=== PATIENT | female | born 1940 | race Caucasian/White ===

== ENCOUNTER 2017-10-03 18:17 | Emergency (ER) | payer MEDICARE ==
[~2017-10-03] VITALS: Ht 165.1 cm; Wt 101.0 kg
[~2017-10-03 18:17] MED LIST: ASPI81TA82 PO; CELE200 PO; ENOX40P SQ; HYDR-3580 PO; IMDU30TA PO; LATA.005%O EACH EYE; LOVA40TA PO; METF500 PO; MULTCAP2 PO; VASO10TA8 PO; ZANTTAB9 PO
[2017-10-03 18:20] VITALS: BP 223/93; PULSE 114; RESP 18; TEMP 98.8; O2SAT 97
[2017-10-03] MEDS ORDERED: ASPI-516 CHEW (19:03)
[2017-10-03] MEDS ORDERED: LOVA40TA PO (19:03)
[2017-10-03] MEDS ORDERED: ZANT150T2 PO (19:03)
[2017-10-03] MEDS ORDERED: METF500 PO ×2 (19:03)
[2017-10-03] MEDS ORDERED: HYDR25TA5 PO (19:03)
[2017-10-03] MEDS ORDERED: TIMO0.5S30 EACH EYE (19:03)
[2017-10-03] MEDS ORDERED: LISI40TA PO (19:03)
--- NOTE | 2017-10-03 19:22 | PD ---
HPI Chief Complaint: Musculoskeletal Complaint Time Seen by Provider: 18:51 Travel History International Travel<30 days: No Contact w/Intl Traveler<30days: No Traveled to known affect area: No History of Present Illness HPI 77-year-old female here with left shoulder pain after she had a fall from a standing position at 2 PM today. She reports she was walking through with grass when she slipped falling onto her left side. No head injury or loss of consciousness. Not anticoagulated. Denies any other injuries from the fall. No paresthesia or weakness of the arm. She reports she has pain in the proximal humerus which is worse with palpation and attempted range of motion of the arm. Symptoms severity is moderate. Slightly alleviated with rest. PFSH Past Medical History Cancer: No Cardiovascular Problems: No Diabetes: Yes (TYPE 2) Patient Takes Glucophage: No Endocrine: Yes Gastrointestinal Disorders: Yes (REFLUX) Genitourinary: No Hepatitis: No Hiatal Hernia: No Hypertension: Yes Immune Disorder: No Musculoskeletal: Yes (ARTHRITIS) Neurologic: No Psychiatric: No Respiratory: No Thyroid Disease: No Tetanus Vaccination: < 5 Years Influenza Vaccination: Yes ?: Not Past Surgical History Abdominal Surgery: Yes (JEREMY) Joint Replacement: Yes (JAYCE HIPS) Oral Surgery: Yes (TONSILLECTOMY) Other Surgery: Yes Social History Alcohol Use: No Tobacco Use: No Substance Use: No Allergies-Medications (Allergen,Severity, Reaction): Coded Allergies: meperidine (Unverified Allergy, Severe, 10/03/17) NAUSEA/VOMITING morphine (Unverified Allergy, Severe, 10/03/17) NAUSEA/VOMITING Reported Meds & Prescriptions Reported Meds & Active Scripts Active Reported Timolol Opth Drops 0.5 % Soln 1 Drop EACH EYE DAILY Aspirin 81 Mg Chew 81 Mg CHEW DAILY Zantac (Ranitidine HCl) 150 Mg Tab 75 Mg PO BID Hydrochlorothiazide 25 Mg Tab 25 Mg PO DAILY Lovastatin 40 Mg Tab 40 Mg PO HS Lisinopril 40 Mg Tab 40 Mg PO DAILY Glucophage (Metformin HCl) 500 Mg Tab 500 Mg PO HS Glucophage (Metformin HCl) 500 Mg Tab 500 Mg PO TIDPC Review of Systems Except as stated in HPI: all other systems reviewed are Neg General / Constitutional: No: Fever Eyes: No: Visual changes HENT: No: Headaches Cardiovascular: No: Chest Pain or Discomfort Respiratory: No: Shortness of Breath Gastrointestinal: No: Abdominal Pain Genitourinary: No: Dysuria Musculoskeletal: Positive: Pain (left shoulder) Skin: No Rash Neurologic: No: Weakness Physical Exam Narrative GENERAL: Alert and well-appearing 77-year-old female. Resting comfortably on stretcher. laughing with family member at bedside SKIN: Warm and dry. No abrasions or areas of ecchymosis HEAD: Atraumatic. Normocephalic. EYES: Pupils equal and round. EOMs intact. No injection or drainage. ENT: No facial bone tenderness. No nasal bleeding or discharge. Mucous membranes pink and moist. NECK: Trachea midline. No cervical midline spine tenderness CARDIOVASCULAR: Regular rate and rhythm. No chest wall tenderness RESPIRATORY: No accessory muscle use. Clear to auscultation. Breath sounds equal bilaterally. GASTROINTESTINAL: Abdomen soft, non-tender, nondistended. MUSCULOSKELETAL: Extremities without clubbing, cyanosis, or edema. No obvious deformities. Left upper extremity: + TTP proximal humerus. No deformity. Elbow is held in 90 of flexion against the body. 2+ brachial and radial pulse. Normal sensation distally. Brisk cap refill. Patient can freely wiggle the fingers and wrist. NEUROLOGICAL: Awake and alert. No obvious cranial nerve deficits. Motor grossly within normal limits. Five out of 5 muscle strength in the arms and legs. Normal speech. PSYCHIATRIC: Appropriate mood and affect; insight and judgment normal. Data Data Last Documented VS Vital Signs Date Time Temp Pulse Resp B/P (MAP) Pulse Ox O2 Delivery O2 Flow Rate FiO2 10/03/17 19:40 90 20 134/74 (94) 99 Room Air 10/03/17 18:20 98.8 Orders Orders Shoulder, Limited(2vws) (10/03/17 ) Tramadol (Ultram) (10/03/17 19:45) Ondansetron Odt (Zofran Odt) (10/03/17 19:45) Sling And Swathe (10/03/17 ) [facility] Medical Decision Making Medical Screen Exam Complete: Yes Emergency Medical Condition: Yes Differential Diagnosis Humeral fracture, shoulder dislocation, contusion Narrative Course 77-year-old female with left shoulder pain after she had a mechanical fall from a standing position. The extremity is neurovascularly intact. She has a normal neurologic exam. No evidence of other trauma. X-ray reveal mildly comminuted fracture of the proximal humerus without dislocation.. Findings were discussed with patient. She has a follow-up appointment with her orthopedist Dr. Horner tomorrow. She is stable and ready for discharge. Diagnosis Primary Impression: Humerus fracture Qualified Codes: S42.202A - Unspecified fracture of upper end of left humerus , initial encounter for closed fracture Referrals: Frank Lake MD Additional Instructions: With a sling as directed. Ultram as needed for pain. Follow-up with Dr. Lake at your appointment tomorrow. Return to emergency department if he developed new or worsening symptoms. Scripts Tramadol (Ultram) 50 Mg Tab 50 MG PO Q6H Y for PAIN, #14 TAB 0 Refills Prov: Sadie Llanos 10/03/17 Disposition: 01 DISCHARGE HOME Condition: Stable Sadie Llanos Oct 03, 2017 19:22
[2017-10-03 19:40] VITALS: BP 134/74; PULSE 90; RESP 20; O2SAT 99
[2017-10-03] MEDS ORDERED: ONDANSETRON ODT 4 MG TAB PO ONE (19:45)
[2017-10-03] MEDS ORDERED: traMADol HCL 50 MG TAB PO ONE (19:45)
--- NOTE | 2017-10-03 20:07 | RADRPT ---
EXAM DATE/TIME: 10/03/2017 19:03 [facility] COMPARISON: No previous studies available for comparison. INDICATIONS : Trauma, fall. Left shoulder pain. MEDICAL HISTORY : None. SURGICAL HISTORY : None. ENCOUNTER: Initial ACUITY: 1 day PAIN SCORE: 10/10 LOCATION: Left shoulder FINDINGS: There is a slightly comminuted fracture of the proximal left humerus. No dislocation. Osteoarthritis of the left a.c. joint. CONCLUSION: 1. Mildly comminuted fracture proximal left humerus without dislocation. Robin Bueno MD on October 03, 2017 at 20:04 Board Certified Radiologist. This report was verified electronically.
[2017-10-03] MEDS ORDERED: TRAM50 PO (20:14)
== END 2017-10-03 20:35 | disposition home or self-care (01) ==
LOC: PHEFT 18:17
DX: S42.202A Unspecified fracture of upper end of left humerus, initial encounter for closed fracture (principal); W01.0XXA Fall on same level from slipping, tripping and stumbling without subsequent striking against object, initial encounter; Y93.01 Activity, walking, marching and hiking
CPT/HCPCS: 73030; 99283